=== PATIENT | male | born 1995 | race Caucasian/White ===

== ENCOUNTER 2017-03-04 16:56 | Emergency (ER) | payer BC ==
[~2017-03-04] VITALS: Ht 188 cm; Wt 76.0 kg
[2017-03-04 16:59] VITALS: BP 194/86; PULSE 97; RESP 18; TEMP 97.4; O2SAT 100
[2017-03-04 17:14] VITALS: BP 148/86; PULSE 69; RESP 21; TEMP 98.2; O2SAT 100; O2SAT 69
[2017-03-04] MEDS ORDERED: ACETAMINOPHEN/HYDROcodone 325 MG/5 MG TAB PO ONE ×2 (17:15→21:00)
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
[2017-03-04 18:29] VITALS: RESP 17
[2017-03-04] MEDS ORDERED: IBUP-232 PO (20:18)
[2017-03-04] MEDS ORDERED: NORC5TAB PO ×2 (20:18→20:19)
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
== END 2017-03-04 21:10 | disposition home or self-care (01) ==
LOC: NEPE 16:56
DX: S00.01XA Abrasion of scalp, initial encounter (principal); S16.1XXA Strain of muscle, fascia and tendon at neck level, initial encounter; S02.5XXA Fracture of tooth (traumatic), initial encounter for closed fracture; W16.622A Jumping or diving into natural body of water striking bottom causing other injury, initial encounter; Y92.832 Beach as the place of occurrence of the external cause
CPT/HCPCS: 70486; 72125; 99285